=== PATIENT | male | born 1990 | race Two or more races ===

== ENCOUNTER → 2024-11-01 | Outpatient (CLI) | payer MEDICAID, SELFPAY ==
--- NOTE | 2024-11-01 | XR_ITS ---
Examination: Left elbow 3 views Technique: Elbow AP, oblique, lateral 3 views Exam date and time: November 01, 2024 1122 hours INDICATIONS: Patient fell 8 days ago with injury to the elbow, elbow pain. FINDINGS: 17 mm fracture fragment displaced off the radial head Smaller bone density adjacent to the medial femoral condyle No elbow dislocation IMPRESSION: Recommend CT scan elbow follow-up to best assess complete description of elbow fractures
--- NOTE | 2024-11-01 | XR_ITS ---
Examination: Forearm, left, 2 views. Technique: Forearm, AP, lateral 2 views Date and time of exam: November 01, 2024 1122 hours INDICATIONS: Patient fell 8 days ago with injury to the forearm, forearm pain. FINDINGS: Large bone fracture fragment projects anterior to the elbow, 15 mm, part of this appears to be from the radial head Shafts of the radius and ulna intact IMPRESSION: Recommend CT scan elbow follow-up to assess etiology of the large displaced fracture fragment
--- NOTE | 2024-11-01 | XR_ITS ---
Examination: Hand, left 3 views Technique: Hand AP, oblique, lateral 3 views Date and time of exam: November 01, 2024 at 1122 hours INDICATIONS: Patient fell 8 days ago with injury to the hand, hand pain FINDINGS: No acute fracture No dislocation No foreign body IMPRESSION: No acute fracture If pain persists, recommend repeating this study without the splint material
== END | disposition home or self-care (01) ==
PROVIDERS: PCP Family Medicine
DX: S69.92XA Unspecified injury of left wrist, hand and finger(s), initial encounter (principal); S59.912A Unspecified injury of left forearm, initial encounter; S59.902A Unspecified injury of left elbow, initial encounter; W19.XXXA Unspecified fall, initial encounter
CPT/HCPCS: 73080; 73090; 73130